=== PATIENT | female | born 1960 | race Caucasian/White ===

== ENCOUNTER 2019-06-26 16:13 | Outpatient (CLI) | payer OTHER, BC, SELFPAY ==
--- NOTE | ~2019-06-26 | XR_ITS ---
EXAMINATION: XR chest 2V DATE: 06/26/2019 16:49 INDICATION: Tobacco use TECHNIQUE: PA and lateral views of the chest are obtained. COMPARISON: None available FINDINGS: The lungs are free of acute opacities. There is no pleural effusion or pneumothorax. The ca rdiomediastinal silhouette is normal. There is mild thoracic spondylosis. A suture anchor is noted in the right humeral head. IMPRESSION: 1. No acute cardiopulmonary abnormality. Reviewed, dictated and finalized at location A.
== END 2019-06-26 16:14 | disposition home or self-care (01) ==
LOC: ANHIMG 16:28
PROVIDERS: PCP Family Medicine; Visit Provider Orthopaedic Surgery
DX: Z01.818 Encounter for other preprocedural examination (principal); Z87.891 Personal history of nicotine dependence
CPT/HCPCS: 71046

== ENCOUNTER 2019-06-27 17:16 | Outpatient (CLI) | payer OTHER, BC, SELFPAY | END 2019-06-27 17:17 | disposition home or self-care (01) | PROVIDERS: PCP Family Medicine; Visit Provider Orthopaedic Surgery | DX: M75.100 Unspecified rotator cuff tear or rupture of unspecified shoulder, not specified as traumatic (principal) | CPT/HCPCS: 87070 ==

== ENCOUNTER 2019-07-01 00:10 | Outpatient (CLI) | payer BC, SELFPAY ==
[2019-07-01 16:10] LABS: SARS-CoV-2 RNA PCR Negative
== END 2019-07-01 00:11 | disposition home or self-care (01) ==
LOC: ANHCOVIDDT 00:10
PROVIDERS: PCP Family Medicine; Visit Provider Orthopaedic Surgery
DX: Z01.818 Encounter for other preprocedural examination (principal); Z11.59 Encounter for screening for other viral diseases
CPT/HCPCS: 87635; C9803; U0003

== ENCOUNTER 2019-07-03 01:34 | Day surgery (SDC) | payer OTHER, BC, SELFPAY ==
[2019-06-25 15:28] VITALS: BMI 27.9
--- NOTE | 2019-06-28 11:27 | HP_ITS ---
DATE OF SERVICE: ADMIT DIAGNOSIS: Rotator cuff tear, left shoulder. HISTORY OF PRESENT ILLNESS: The patient is a 59-year-old female patient of Dr. Garcia, who presents today for arthroscopy of her left shoulder with rotator cuff repair. She has been having symptoms in her shoulder for over a year and a half now. She was initially evaluated in November 2018. At that time, she was evaluated for pain in the shoulder. 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 She has a history of rotator cuff tear in the right shoulder that was repaired. She was initially evaluated. After initial evaluation, the patient was sent for an MRI scan, which did show a full-thickness rotator cuff tear of the supraspinatus tendon about 12 mm in width. She has gone through some physical therapy, which only made her symptoms worse. She has been on anti-inflammatories without improvement of her symptoms. She has been trying to live with this as long as possible. Unfortunately, she continues to have significant symptoms, feels at this point she is ready to proceed with repair of the rotator cuff tendon. She has also been waiting on work comp to approve this as a work-related injury. PAST MEDICAL/SURGICAL HISTORY: She has had the shoulder surgery on the right in the past in 2013. CURRENT MEDICATIONS: Her only current medication is meloxicam 15 mg daily. ALLERGIES: SHE IS ALLERGIC TO CLINDAMYCIN, WHICH CAUSES STOMACH PAINS AND PENICILLIN, WHICH GIVES HER HIVES. FAMILY HISTORY: Noncontributory. SOCIAL HISTORY: She is a nonsmoker. PHYSICAL EXAMINATION: VITAL SIGNS: She is 5 feet 4 inches, 163 pounds. Other vital signs per nursing on the morning of surgery. HEENT: Grossly normal. LUNGS: Clear bilaterally. HEART: Regular rate and rhythm. MUSCULOSKELETAL: Left shoulder, she has active elevation to 140, passive to 160, both with severe pain. External rotation is to 80 with minimal pain. Internal rotation is to L1 with some mild pain. She has moderate weakness with thumbs down abduction testing. Moderate pain in this position as well. She has normal external rotation strength. Belly press is normal. She is barely able to do a subscap lift-off. Neck shows decreased range of motion and some mild pain in the right trapezius. Negative Spurling maneuver. She complains of no numbness or tingling in the left arm, has moderately severe tenderness over the long head of the biceps. Negative Speed maneuver. Significant pain with primary and secondary impingement testing. No AC joint tenderness. 2+ radial pulse. IMAGING DATA: MRI scan again shows full-thickness tear of the supraspinatus and partial thickness tearing of the infraspinatus. IMPRESSION: Patient has a full-thickness rotator cuff tear, left shoulder with continued symptoms. At this point, she would like to proceed with surgery. Surgical procedure as well as risks and complications were discussed. All questions were answered and we will proceed. She will avoid her Mobic and any other aspirin, ibuprofen products 1 week prior to surgery. She will see Dr. Garcia for pre-surgical clearance. D I MT: Miko
[2019-07-03] VITALS (9 sets, daily range): BP systolic 97–132; BP diastolic 64–76; PULSE 62–78; RESP 12–20; TEMP 36.1–36.4; O2SAT 93–100
--- NOTE | 2019-07-03 10:38 | WPDANESEPPF ---
Anes - Initial Pre Proc Eval Procedure: Operation Date: 07/03/19 12:00 Proposed Procedures p Left Shoulder Arthroscopy Acromialplasty Mini Open Rotator Cuff Repair, Proceed as Indicated - Ferny Dove MD Date/Time: 07/03/19 10:38 Surgeon: Ferny Dove MD Pre Op Diagnosis: Left Shoulder Rotator Cuff tear Patient Data Age: 59 Gender: F Height: 5 ft 4 in Weight: 73.94 kg Allergies Allergy/AdvReac Type Severity Reaction Status Date / Time Penicillins Allergy Unknown HIVES Verified 07/03/19 10:18 clindamycin AdvReac Nausea Verified 07/03/19 10:18 Honey Bee Allergy Unknown REDNESS, Uncoded 07/03/19 10:18 SEVERE SWELLING Home Medications Medication Instructions Recorded Confirmed Type Glucosamine Chondroitin 1 tbsp PO DAILY 06/25/19 07/03/19 History Patient hx anesthesia problems: post op nausea/vomiting Family hx anesthesia problems: none Anes - Eval Final PreProcedure Day of Procedure 07/03/19 10:38 Patient weight: overweight Heart: regular rate and rhythm Lungs: clear to auscultation Airway: Mallampati scale class II Neurological: alert and oriented Last oral intake: >/= 8 hours ASA classification: II Emergent: no Anesthetic plan: proceed Anesthesia type and monitoring: general LMA and standard monitoring Informed Consent: The patient's anesthetic plan and its attendant risks and benefits were discussed with the patient/family/POA. Questions were solicited and answers provided to the satisfaction of the patient/family/POA.
[2019-07-03] MEDS: LACTATED RINGERS 1,000 ML 30 ML IV CONT ×2 (10:45→15:17)
[2019-07-03] MEDS: SCOPOLAMINE 1.5 MG PATCH TRANSDERM (11:24)
--- NOTE | 2019-07-03 12:10 | WPDANESPNB ---
Anes - Peripheral Nerve Block Date/Time: 07/03/19 12:10 I have discussed with the patient/family/POA the placement of a peripheral nerve block for post-operative pain management, including associated risks, benefits, complications, and side effects. Alternative methods of post-operative analgesia were detailed. Questions were solicited and answers provided to the satisfaction of the patient/family/POA. Time-Out: A pre-procedural Time-Out was completed immediately before starting the procedure and confirmed: Patient Identification, Site, Procedure, Patient Position and the Availability of Requisite Equipment. Clinical Indications: Acute post-operative pain management requested by the operative surgeon. Nerve Block Insertion Note Anes-nerve block: interscalene left Patient position: other (sitting) Skin prep: chlorhexidine Needle: 22 gauge, stimulating, insulated echogenic needle. Needle length: 50 mm Technique: nerve stimulation lost at (mA) (0.3) and ultrasound Technique comment: mid 2mg fent 100mcg Injectate: bupivacaine 0.5% with epi 5 mcg/ml (30ml) and dexamethasone (mg) (4) Observations: tolerated well Complications: none Procedure start time:: 1158 Procedure end time:: 1203
--- NOTE | 2019-07-03 12:13 | WPDHPUPDATE1 ---
History and Physical Update Update Date/Time: 07/03/19 12:13 History and Physical has been reviewed, including an updated exam of the patient. There are NO changes in the patient's condition. Risks, benefits, and alternatives have been discussed and questions answered. Patient agrees to proceed with procedure.
[2019-07-03] MEDS: ceFAZolin 2 GM/D5W 50 ML 2 GM/50 ML BAG IVPB (12:30)
[2019-07-03] MEDS: ceFAZolin SODIUM 1 GM VIAL IRRIGATION (12:50)
--- NOTE | 2019-07-03 15:15 | PM.PROC ---
Procedure Note - Detailed Date of procedure: 07/03/19 Pre-op diagnosis: Left Shoulder Rotator Cuff tear Post-op diagnosis: other (Same, and severe fraying of long head of biceps tendon as it entered the bicipital groove. Left shoulder) Procedure performed: Left shoulder Arthroscopic debridement labrum and CA ligament, arthroscopic biceps tenotomy, mini open biceps tenodesis in the bicipital groove using keyhole technique, mini open rotator cuff repair medium size rotator cuff tear. Description of procedure: Patient brought to the operating room and general anesthesia was administered. She received 2 g of Ancef and 1 g of vancomycin IV preoperatively. She had no rash. She was placed in the beach chair position the head secured in neutral alignment in the left shoulder prepped draped usual fashion. Range of motion was good. Arthroscope was placed into the posterior glenohumeral joint. Articular surfaces looked normal. There was moderate fraying of the superior labrum and some maceration there. There was severe fraying of the long head of the biceps and narrowing of its caliber as it entered the bicipital groove where there was apparent incompetence of the medial myriam of the long of the biceps tendon sheath. Full-thickness rotator cuff tear identified involving supraspinatus tendon partial-thickness tearing involving the infraspinatus tendon. Arthroscope was placed in the subacromial space. There is fairly extensive fraying of the CA ligament we made another mid lateral portal and placed an anterior outflow portal and with ArthroCare and shaver alternating debrided the CA ligament insertion from anterior acromion to decompress the subacromial space. We did not perform a sub a formal subacromial acromioplasty as she did not have a significant buildup Sineff narrowing of the subacromial space from the anterior acromion. It was a gently curved type 2 on MRI scan. The U shaped tear mildly retracted was again noted. The shoulder was covered with Ioban outer gloves changed. A 2 in incision was made extending off the top of the anterior acromion anterolaterally and the tendinous raphe between anterior and middle heads of the deltoid was split longitudinally giving a 4 cm split. Self-retaining retractor was placed. This was a little tight and we released about 5 mm of anterior deltoid from the acromion to be repaired later. This gave us excellent exposure. The arm was placed on a Man stand and the bicipital groove brought under the incision and 1 could feel the subluxation of the upper portion of the long of the biceps. Biceps tendon sheath was incised and partial-thickness tearing Varinder to about the midportion of the bicipital groove the the tendon improved. The bicipital groove was somewhat stenotic I thought. The caliber of the long head of the biceps proximally was good. S we placed a 2. Ethibond suture in the tendon at the lower edge of the bicipital groove as a marking spigot and removed the retractor placed the arthroscope back in the posterior portal and using arthroscopic scissors we amputated the long of the biceps from the superior glenoid leaving a few mm. Intact the superior labrum was gently debrided with motorized shaver otherwise was competent and stable. With the arthroscope removed we returned to placed the self-retaining retractors and rolled the biceps proximal to the marking stitch into a tight ball was solidified with 2. FiberWire about 8 or 9 mm diameter and we made these circular hole in the top of the bicipital groove with a 5 mm bur of the same size the made a 2-1/2 mm slot which represented the with observe represented the thickness of the tendon and it is flatter dimension and this slot extended about 8 mm below the circular hole and we then pushed the ball the portion of long head into the hole and allowed to retract distally behind the slot the tendon slid in the slot nicely giving a very secure fixation. Bicipital groove aponeurosis was repaired
[2019-07-03 17:07] LABS: HIV 1/2 Ab P24 Ag Result Negative (Negative); Hepatitis B Surface Anti Res Negative; Hepatitis C Virus Antibody Negative (Negative)
== END 2019-07-03 17:15 | disposition home or self-care (01) ==
PROVIDERS: PCP Family Medicine; Visit Provider Orthopaedic Surgery
PROC: (CPT 29805; principal; 2019-07-03 12:00)
DX: M75.102 Unspecified rotator cuff tear or rupture of left shoulder, not specified as traumatic (principal); G89.18 Other acute postprocedural pain
CPT/HCPCS: 23412; 23430; 29822; 64415; 36415; 86703; 86706; 86803; A4565; A9270; G0432; J0690; J1100; J2250; J2405; J2704; J3010; J3370; J7120

== ENCOUNTER 2019-09-20 12:36 | Outpatient (CLI) | payer OTHER, BC, SELFPAY ==
--- NOTE | ~2019-09-20 | MR_ITS ---
EXAMINATION: MR brain/brain stem wo/w con DATE: 09/20/2019 13:59 INDICATION: Dizziness and giddiness. TECHNIQUE: Magnetic resonance imaging (MRI) of the brain and brainstem was performed without and with 14 mL MultiHance intravenous contrast. Sequences included sagittal and axial T1-weighted FSE, axial diffusion-weighted FS EPI, axial T2*-weighted GRE, axial T2-weighted FLAIR Propeller, and axial T2-we ighted Propeller. Postcontrast sequences included axial and coronal T1-weighted FSE. Apparent diffusi on coefficient (ADC) maps were created. COMPARISON: None. FINDINGS: There is no intracranial hemorrhage, acute infarction, or abnormal intracranial mass lesion . The ventricles are normal in size. There is mild mucosal thickening in the paranasal sinuses. The o rbits are normal. There is a trace left mastoid effusion. IMPRESSION: 1. Normal brain. Reviewed, dictated and finalized at location B. IMPRESSION: 1. Normal brain.
[2019-09-20 13:23] LABS: Estimated Glomerular Filt Rate > 60
== END 2019-09-20 12:37 | disposition home or self-care (01) ==
LOC: ANHIMG 12:47
PROVIDERS: PCP Family Medicine
DX: R42 Dizziness and giddiness (principal)
CPT/HCPCS: 36415; 70553; A9577

== ENCOUNTER → 2019-09-25 10:37 | Outpatient (CLI) | payer BC, SELFPAY ==
--- NOTE | ~2019-09-25 | US_ITS ---
EXAMINATION: US carotid duplex BI DATE: 09/25/2019 11:27 INDICATION: Vertigo. TECHNIQUE: Grayscale, color Doppler, and pulsed Doppler images of the cervical carotid arteries were obtained. The degree of vessel stenosis is placed in one of the following categories: normal, <50%, 5 0-69%, >=70% but less than near-occlusion, near-occlusion, or total occlusion. Note that percent sten osis relative to normal distal artery lumen diameter is indirectly measured from velocity measurement s as described by Efraín, et al. Radiology 2003; 229:340-346. COMPARISON: None. FINDINGS: RIGHT: The right common carotid artery (CCA) peak systolic velocity (PSV) is 107 cm/s. The right internal ca rotid artery (ICA) PSV is 88 cm/s. The right ICA end-diastolic velocity (EDV) is 18 cm/s. The right I CA/CCA PSV ratio is 0.8. Grayscale and color Doppler images yield an estimate of <50% diameter reduct ion from plaque in the ICA. There is antegrade flow in the right vertebral artery. LEFT: The left CCA PSV is 91 cm/s. The left ICA PSV is 95 cm/s. The left ICA EDV is 33 cm/s. The left ICA/C CA PSV ratio is 1.0. Grayscale and color Doppler images yield an estimate of <50% diameter reduction from plaque in the ICA. There is antegrade flow in the left vertebral artery. IMPRESSION: 1. <50% stenosis in the right internal carotid artery. 2. <50% stenosis in the left internal carotid artery. Reviewed, dictated and finalized at location A.
== END ==
PROVIDERS: PCP Family Medicine; Visit Provider Family Medicine
DX: R42 Dizziness and giddiness (principal); I65.23 Occlusion and stenosis of bilateral carotid arteries
CPT/HCPCS: 93880

== ENCOUNTER → 2020-07-24 13:16 | Outpatient (CLI) | payer BC, SELFPAY ==
--- NOTE | ~2020-07-24 | MM_ITS ---
EXAMINATION: MM screening [facility] BI w [facility] HISTORY: Screening mammogram TECHNIQUE: Craniocaudal and mediolateral oblique 3-D tomosynthesis images were obtained and synthetic 2-D images were generated. CAD analysis was submitted and interpreted. COMPARISON: 09/27/2018, 08/07/2017, 06/23/2016 BREAST PARENCHYMAL COMPOSITION: There are scattered areas of fibroglandular density. FINDINGS: There is no evidence of suspicious mass, calcification, or architectural distortion to sugg est malignancy in either breast. There has been no suspicious interval change. IMPRESSION: 1. No mammographic evidence of malignancy. 2. Recommend routine screening mammography in one year. BI-RADS Category 1: Negative Reviewed, dictated and finalized at location A.
== END ==
PROVIDERS: PCP Family Medicine; Visit Provider Family Medicine
DX: Z12.31 Encounter for screening mammogram for malignant neoplasm of breast (principal)
CPT/HCPCS: 77063; 77067

== ENCOUNTER 2021-08-07 17:56 | Emergency (ER) | payer BC, SELFPAY ==
--- NOTE | ~2021-08-07 | XR_ITS ---
EXAM: XR knee RT min 4V DATE: 08/07/2021 18:18 HISTORY: right knee pain . COMPARISON: None available. FINDINGS: Normal mineralization. No fracture or dislocation. No lytic or blastic lesion. Right knee osteoarthritic change, moderate in the medial compartment. No erosion or periosteal change. Soft tiss ues within normal limits. IMPRESSION: No acute osseous finding in the right knee. Reviewed, dictated and finalized at location K.
[2021-08-07 17:58] VITALS: BP 127/66; PULSE 67; RESP 18; TEMP 36.6; O2SAT 99
--- NOTE | 2021-08-07 18:21 | ED.LOWEXIN ---
HPI - Extremity Injury (Lower) General Chief Complaint: Extremity Injury, Lower <Serina Verma PA-C - Last Filed: 08/07/21 19:03> Stated Complaint: R. knee pain <LIBIA Stuart Last Filed: 08/07/21 19:03> Time Seen by Provider: 08/07/21 18:07 <Serina Verma PA-C - Last Filed: 08/07/21 19:03> Source: patient <LIBIA Stuart Last Filed: 08/07/21 19:03> Mode of arrival: ambulatory <LIBIA Stuart Last Filed: 08/07/21 19:03> Limitations: no limitations <LIBIA Stuart Last Filed: 08/07/21 19:03> History of Present Illness HPI Narrative: This is a 61-year-old female that presents to the emergency department for right knee pain worsening over the last month. No recent injury or trauma. Reports progressive pain with weightbearing and movement. She has been taking anti-inflammatories for pain. Denies fever, erythema, edema, or numbness. <Serina Verma PA-C - Last Filed: 08/07/21 19:03> Related Data Home Medications: Home Medications Medication Instructions Recorded Confirmed No Home Medications 08/07/21 08/07/21 <Serina Verma PA-C - Last Filed: 08/07/21 19:03> Allergies/Adverse Reactions: Allergies Allergy/AdvReac Type Severity Reaction Status Date / Time Penicillins Allergy Unknown HIVES Verified 08/07/21 18:08 clindamycin AdvReac Nausea Verified 08/07/21 18:08 Honey Bee Allergy Unknown REDNESS, Uncoded 07/03/19 10:18 SEVERE SWELLING <LIBIA Stuart Last Filed: 08/07/21 19:03> Review of Systems Review of Systems: CONSTITUTIONAL: Denies fever SKIN: Denies rash MUSCULOSKELETAL: Reports joint pain, and myalgia. NEUROLOGIC: Denies numbness <LIBIA Stuart Last Filed: 08/07/21 19:03> All systems reviewed & are unremarkable except as noted in HPI and below <Serina Verma PA-C - Last Filed: 08/07/21 19:03> PMFSH Past Medical History Medical History: Medical History (Updated 08/07/21 @ 19:03 by Serina Verma PA-C) History of hypothyroidism <Serina Verma PA-C - Last Filed: 08/07/21 19:03> Social History Social History: Social History (Updated 08/07/21 @ 18:23 by Serina Verma PA-C) Substance use: never <Serina Verma PA-C - Last Filed: 08/07/21 19:03> Exam Narrative: GENERAL: Well-appearing, well-nourished, and in no acute distress. HEAD: Normocephalic, atraumatic. EYES: EOMI. EXTREMITIES: Normal range of motion. No edema, erythema or warmth. Normal DP pulse. Normal sensation SKIN: Warm, dry, no rash. NEURO: No focal deficits. Alert and oriented x3. PSYCH: Normal mood and affect <Serina Verma PA-C - Last Filed: 08/07/21 19:03> Course GLASS EDGER/PA Physician Supervision I did not see this patient nor was the care plan discussed with me, imaging reviewed I was available for evaluation and consultation, I agree with the documentation <Benedict Mathis MD - Last Filed: 08/07/21 21:32> Vital Signs Vital signs: Vital Signs Temperature 36.6 C 08/07/21 17:58 Pulse Rate 67 08/07/21 17:58 Respiratory Rate 18 08/07/21 17:58 Blood Pressure 127/66 08/07/21 17:58 Pulse Oximetry 99 08/07/21 17:58 Oxygen Delivery Room Air 08/07/21 17:58 Temperature 36.6 C 08/07/21 17:58 Pulse Rate 67 08/07/21 17:58 Respiratory Rate 18 08/07/21 17:58 Blood Pressure 127/66 08/07/21 17:58 Pulse Oximetry 99 08/07/21 17:58 Oxygen Delivery Room Air 08/07/21 17:58 <Serina Verma PA-C - Last Filed: 08/07/21 19:03> Vital Signs Temperature 36.6 C 08/07/21 17:58 Pulse Rate 67 08/07/21 17:58 Respiratory Rate 18 08/07/21 17:58 Blood Pressure 127/66 08/07/21 17:58 Pulse Oximetry 99 08/07/21 17:58 Oxygen Delivery Room Air 08/07/21 17:58 Temperature 36.6 C 08/07/21 17:58 Pulse Rate 67 08/07/21 17:58 Respiratory Rate 18 08/07/21 17:58 Blood Pressure 127/66 08/07/21 17:58 Pulse
== END 2021-08-07 19:10 | disposition home or self-care (01) ==
PROVIDERS: Emergency Provider Emergency Medicine; PCP Family Medicine
DX: M17.11 Unilateral primary osteoarthritis, right knee (principal); E03.9 Hypothyroidism, unspecified
CPT/HCPCS: 73564; 99283

== ENCOUNTER 2021-08-20 12:39 | Emergency (ER) | payer BC, SELFPAY ==
[2021-08-20 12:48] VITALS: BP 141/64; PULSE 82; RESP 16; TEMP 37.5; O2SAT 98
--- NOTE | 2021-08-20 13:47 | ED.EAR ---
HPI - Ear Problem General Chief complaint: Ear Stated complaint: Ear Pain,Cough Time Seen by Provider: 08/20/21 13:47 Source: patient Mode of arrival: ambulatory Limitations: no limitations History of Present Illness HPI Narrative: 61-year-old female presents with complaint of sore throat, cough, hoarse voice for 2 to 3 days. No body aches, fatigue fever or chills. No nausea vomiting diarrhea. No shortness of breath. States that today she woke up with right ear pain. Has not taken any medication to treat her pain. Is taking [id number]-neepyhu DayQuil NyQuil to treat cough. Called her primary care physician today but could not get appointment. Patient's primary care doctor called her back while she was at urgent care and prescribed a Z-Brian. All systems reviewed and negative except as noted above. Related Data Home Medications Medication Instructions Recorded Confirmed levothyroxine 50 mcg tablet 1 tablet PO DAILY 08/20/21 08/20/21 Allergies Allergy/AdvReac Type Severity Reaction Status Date / Time Penicillins Allergy Unknown HIVES Verified 08/20/21 13:13 clindamycin AdvReac Nausea Verified 08/20/21 13:13 Honey Bee Allergy Unknown REDNESS, Uncoded 08/20/21 13:13 SEVERE SWELLING Review of Systems Review of Systems: CONSTITUTIONAL: Denies fever, chills, or sweats. EYES: Denies visual changes, redness, or discharge. ENT: Denies rhinorrhea, congestion. Reports sore throat and right ear pain. CARDIOVASCULAR: Denies chest pain, palpitations, or edema. RESPIRATORY: Reports cough. Denies dyspnea. GASTROINTESTINAL: Denies abdominal pain, nausea, vomiting, or diarrhea. GENITOURINARY: Denies dysuria or hematuria. SKIN: Denies rash or itching. MUSCULOSKELETAL: Denies back pain, joint pain, or myalgia. NEUROLOGIC: Denies headache, numbness, or weakness. PSYCHIATRIC: Denies anxiety or depression. All other systems reviewed are negative, except as documented in HPI. [facility] Past Medical History Medical History (Updated 08/20/21 @ 14:22 by Janis Herman NP) History of hypothyroidism Social History Social History (Updated 08/07/21 @ 18:23 by Serina Verma PA-C) Substance use: never Comments At time of signature, agree with nursing past medical, surgical, social and family history. There is no relevant family history pertinent to the presenting complaint. Exam Narrative: GENERAL: This is a well-nourished, well-developed patient, in no apparent distress. HEAD: normocephalic, atraumatic. EYES: PERRL. Sclera clear/white. Vision is grossly intact. EARS: External ears normal, auditory canals clear and without drainage, fluid to bilateral TMs with dull light reflex. No erythema or bulging. No perforation. NOSE: External nose normal with no obvious nasal discharge, nares without redness, no rhinorrhea. THROAT: Mucous membranes moist, erythema to posterior pharynx. No swelling or exudates. NECK: Neck supple, non-tender without lymphadenopathy, masses or thyromegaly. CARDIOVASCULAR: Regular rate and rhythm without murmurs, gallops, or rubs. RESPIRATORY: Clear to auscultation. Breath sounds equal bilaterally. No wheezes, rales, or rhonchi. SKIN: warm, Dry, intact with no suspicious lesions or rash, good texture and turgor. NEURO: awake, alert, and oriented to person, place and time. There were no obvious focal neurologic abnormalities. EXTREMITIES: No joint tenderness, effusion, or edema noted. Course Course Level of Care: Express Care Visit Vital Signs Vital signs: Vital Signs Temperature 37.5 C 08/20/21 12:48 Pulse Rate 82 08/20/21 12:48 Respiratory Rate 16 08/20/21 12:48 Blood Pressure 141/64 H 08/20/21 12:48 Pulse Oximetry 98 08/20/21 12:48 Oxygen Delivery Room Air 08/20/21 12:48 Temperature 37.5 C 08/20/21 12:48 Pulse Rate 82 08/20/21 12:48 Respiratory Rate 16 08/20/21 12:48 Blood Pressure 141/64 H 08/20/21 12:48 Pulse Oximetry 98 08/20/21 12:48 Oxygen
== END 2021-08-20 14:38 | disposition home or self-care (01) ==
PROVIDERS: Emergency Provider Nurse Practitioner Family; PCP Family Medicine
DX: J06.9 Acute upper respiratory infection, unspecified (principal); H65.01 Acute serous otitis media, right ear; Z20.822 Contact with and (suspected) exposure to COVID-19; E03.9 Hypothyroidism, unspecified
CPT/HCPCS: 87081; 87426; 87880; 99213; C9803; G0463

== ENCOUNTER → 2021-11-01 10:00 | Outpatient (CLI) | payer BC, SELFPAY ==
--- NOTE | ~2021-11-01 | MM_ITS ---
EXAMINATION: MM screening [facility] BI w [facility] HISTORY: Screening mammogram TECHNIQUE: Craniocaudal and mediolateral oblique 3-D tomosynthesis images were obtained and synthetic 2-D images were generated. CAD analysis was submitted and interpreted. COMPARISON: 07/24/2020, 09/27/2018, 08/07/2017 bilateral screening mammogram examinations BREAST PARENCHYMAL COMPOSITION: The breasts are almost entirely fatty. FINDINGS: There is no evidence of suspicious mass, calcification, or architectural distortion to sugg est malignancy in either breast. There has been no suspicious interval change. IMPRESSION: 1. No mammographic evidence of malignancy. 2. Recommend routine screening mammography in one year. BI-RADS Category 1: Negative Reviewed, dictated and finalized at location A.
== END ==
PROVIDERS: PCP Family Medicine; Visit Provider Family Medicine
DX: Z12.31 Encounter for screening mammogram for malignant neoplasm of breast (principal)
CPT/HCPCS: 77063; 77067

== ENCOUNTER → 2023-03-07 10:57 | Outpatient (CLI) | payer BC, SELFPAY ==
--- NOTE | ~2023-03-07 | MM_ITS ---
EXAMINATION: MM screening [facility] w [facility] HISTORY: Screening TECHNIQUE: Craniocaudal and mediolateral oblique 3-D tomosynthesis images were obtained and synthetic 2-D images were generated. CAD analysis was submitted and interpreted. COMPARISON: No prior mammogram is available for comparison at this institution. BREAST PARENCHYMAL COMPOSITION: There are scattered areas of fibroglandular density. FINDINGS: There is no evidence of suspicious mass, calcification, or architectural distortion to sugg est malignancy in either breast. There has been no suspicious interval change. IMPRESSION: 1. No mammographic evidence of malignancy. 2. Recommend routine screening mammography in one year. BI-RADS Category 1: Negative Reviewed, dictated and finalized at location A. 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
== END ==
PROVIDERS: PCP Family Medicine; Visit Provider Family Medicine
DX: Z12.31 Encounter for screening mammogram for malignant neoplasm of breast (principal)
CPT/HCPCS: 77063; 77067

== ENCOUNTER 2024-02-06 10:24 | Emergency (ER) | payer BC, SELFPAY ==
--- NOTE | 2024-02-06 10:28 | ED_ITS ---
HPI - URI/Sore Throat General Chief Complaint: Upper Respiratory Infection Stated Complaint: Sinus symptoms Time Seen by Provider: 02/06/24 10:28 Source: patient Mode of arrival: ambulatory Limitations: no limitations History of Present Illness HPI Narrative: Gi is a 64-year-old female patient presenting to the clinic today with complaints of possible sinus infection. She reports symptoms have been going on for approximately 2 weeks. Is blowing out green nasal drainage. Has a lot of sinus pressure and congestion. Has felt feverish with fatigue. MD elicited complaint: sore throat and nasal congestion Related Data Allergies Allergy/AdvReac Type Severity Reaction Status Date / Time Penicillins Allergy Unknown HIVES Verified 02/06/24 10:28 clindamycin AdvReac Nausea Verified 02/06/24 10:28 Honey Bee Allergy Unknown REDNESS, Uncoded 10/31/23 10:50 SEVERE SWELLING Review of Systems Review of Systems: Pertinent positives per HPI. Patient denies any fever, chills, rash, visual changes, dizziness, shortness of breath, chest pain, palpitations, nausea, vomiting, diarrhea, constipation, abdominal pain, or any urinary issues. FOR[facility]LY [facility] Past Medical History Medical History Anxiety History of hypothyroidism Surgical History Surgical History H/O rotator cuff surgery Family History Family History Father Diabetes mellitus Cancer Sibling Diabetes mellitus Thyroid disorder Social History Social History Smoking status: Former smoker (smoked less than 1 ppd for under ten years, 30 years ago) Second hand tobacco smoke exposure: No Alcohol intake: never Substance use: never Substance use type: does not use Do You Feel Safe in your Home?: Yes Lack of Transportation: No Lack of Food: Never True Current Housing: I Have Housing Concerned About Future Housing: No Difficulty Paying Gas/Electric Bills: No Difficulty Paying for Meds: No Currently Unemployed: No Living arrangements: with family Occupation/Education: occupation Gender identity (if verbalized by the patient): Female Sexual Orientation (if Verbalized by the Patient): Straight or Heterosexual Spiritual care concerns: No Comments At the time of my signature, I reviewed and agree with the nursing past medical, surgical, social, and family history. There is no relevant family history pertinent to the patient complaint. Exam Narrative: General: Well-developed, well nourished, in no apparent distress Head: Normocephalic, atraumatic Eyes: Pupils equally round and reactive to light bilaterally, EOM intact, sclera and conjunctive clear, no discharge, lids normal Ears: TMs intact and clear, ear canals ceruminous, no drainage, grossly hearing normal. Nose: Nares patent, green nasal discharge, moderate inflammation, maxillary and frontal sinus tenderness. Mouth: Oral pharynx without lesions or masses, good dentition, MMM. Postnasal drip Neck: Supple, trachea midline, no enlargement of anterior or posterior cervical nodes, no thyroid masses or goiter palpable. Cardio: Regular rate and rhythm, s1 and s2 normal, no murmur appreciated. Resp: Clear to auscultation bilaterally, no rhonchi, rales, wheezing or rubs Course Course Emergency Course: Portions of this record may have been created with voice recognition software. Level of Care: Express Care Visit Vital Signs Vital signs: Vital Signs Temperature 36.4 C L 02/06/24 10:33 Pulse Rate 86 02/06/24 10:33 Respiratory Rate 18 02/06/24 10:33 Blood Pressure 127/72 02/06/24 10:33 Pulse Oximetry 97 02/06/24 10:33 Oxygen Delivery Room Air 02/06/24 10:33 Temperature 36.4 C L 02/06/24 10:33 Pulse Rate 86 02/06/24 10:33 Respiratory Rate 18 02/06/24 10:33 Blood Pressure 127/72 02/06/24 10:33 Pulse Oximetry 97 02/06/24 10:33 Oxygen Delivery Room Air 02/06/24 10:33 Vital signs reviewed MDM - URI/Sore Throat MDM Narrative Medical decision making narrative: At the time of visit patient is resting comfortably on the exam table. Patient appears to be nontoxic. Plan: I suspect patient has acute bacterial rhinosinusitis. Prescription for doxycycline and prednisone was sent to the pharmacy. Supportive measures were discussed with the patient and they voiced understanding discharge instructions and agrees to treatment plan. Return precautions reviewed Differential Diagnosis Differential diagnosis: Likely upper respiratory infection, otitis media, sinusitis, viral infection, bronchitis, influenza, pharyngitis and other Discharge Plan Discharge Clinical Impression: Acute bacterial rhinosinusitis Patient Disposition: Home, Self-Care Condition: Stable Instructions: Antibiotic Form, Rhinosinusitis (ED) Additional Instructions: Take prescription medications only as prescribed-doxycycline and prednisone Increase fluids and stay well hydrated Tylenol/motrin for pain/fever Flonase and OTC antihistamines as directed Vicks vapor rub to open sinuses Sinus rinses for congestion Cepacol spray, cough drops, throat lozenges, warm tea with honey/lemon, gargle salt water to soothe throat BRAT diet for diarrhea Clear liquids x 24 hours then advance as tolerated for nausea/vomiting Go to the ED if you develop a worsening in your condition- high fever not controlled by Tylenol or Motrin, dehydration, weakness, lethargy, shortness of breath, or chest pain. Follow up with your PCP in 3-5 days if symptoms persist. Patient Language: Nepali Prescriptions: New doxycycline monohydrate 100 mg capsule 100 mg PO BID 10 Days Qty: 20 0RF prednisone 20 mg tablet 40 mg PO DAILY 5 Days Qty: 10 0RF No Action loratadine [Claritin] 10 mg tablet 10 mg PO DAILY Qty: 30 0RF glucosamine sulfate [Cidatrine (glucosamine)] 500 mg tablet 500 mg PO DAILY Qty: 1 0RF Rx Instructions: administer with a meal cholecalciferol (vitamin D3) 25 mcg (1,000 unit) capsule 25 mcg PO DAILY Qty: 1 0RF levothyroxine 50 mcg tablet 50 mcg PO DAILY Qty: 90 1RF Follow-up/Referrals: Chio Chandler MD [Primary Care Provider] - Time of Disposition: 10:36 Quality NIHSS Nursing Documentation ED NIHSS nursing documentation: reviewed/agree
[2024-02-06 10:33] VITALS: BP 127/72; PULSE 86; RESP 18; TEMP 36.4; O2SAT 97
== END 2024-02-06 10:41 | disposition home or self-care (01) ==
PROVIDERS: Emergency Provider Nurse Practitioner Family; PCP Family Medicine
DX: J01.90 Acute sinusitis, unspecified (principal); Z87.891 Personal history of nicotine dependence; E03.9 Hypothyroidism, unspecified
CPT/HCPCS: 99213; G0463

== ENCOUNTER 2024-03-13 10:50 | Outpatient (CLI) | payer BC, SELFPAY ==
--- NOTE | 2024-03-13 11:14 | ECG_ITS ---
Test Date: 2024-03-13 11:26:03 Measurements Intervals Eckley Rate: 57 P: 57 FL: 198 QRS: 48 QRSD: 96 T: 29 QT: 405 QTc: 396 Interpretive Statements SINUS BRADYCARDIA POSSIBLE LEFT ATRIAL ENLARGEMENT LOW QRS VOLTAGE IN PRECORDIAL LEADS INCOMPLETE RIGHT BUNDLE BRANCH BLOCK BORDERLINE ST-T WAVE ABNORMALITY- INFERIOR LEADS BORDERLINE ECG No previous ECG available for comparison Electronically Signed On 03-13-2024 13:37:16 TERMINAL BLOCK ASSEMBLER by Montrell Kaminski D.O.
--- OUTSIDE RECORDS SUMMARY | 2024-03-13 12:29 | XMS_ITS | Patient Health Summary ---
Author Organization [facility] Address [address] [place] [address] Care Team Providers Care Supervisory Training Specialist Name Role Phone Jeovanny Garcia MD Primary Care Provider Note from [facility],non-owned Affiliates and Associated Physician Practices is amultiple site organization consisting of ambulatory clinics and hospital sitesin [place], [place], [place] and [place]. This disclosure is being madepursuant to the Care Everywhere program and may not contain all information available regarding this patient. Last updated 17.[facility] Social History Tobacco Use Types Packs/Day Years Used Date Smoking Tobacco: Never Assessed Sex and Gender Information Value Date Recorded Sex Assigned at Not on file Gender Identity Not on file Sexual Orientation Not on file Procedures * DERMATOPATHOLOGY(Performed 06/17/2021) * DERMATOPATHOLOGY(Performed 03/17/2021) * DERMATOPATH TECHNICAL REPORT(Performed 10/18/2017) Results * DERMATOPATHOLOGY (06/17/2021 3:33 AM CDT) Only the most recent of2 resultswithin the time period is included. Case Report Dermatopathology Report ? Case: [id number] ? Authorizing Provider: ??Charla Yu, ? Collected: ? 06/17/2021 03:33 AM ? GATE MANAGER-NEIGHBORHOOD AIDE ? Ordering Location: ? [facility] ?Received: ?06/18/2021 07:37 AM ? Pathologist: ? Yamini Mcconnell MD ? Specimen: ?Skin, right top shoulder ? 2 1:11 PM [facility] Final Diagnosis Specimen A. 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 The specimen consists of a shave biopsy measuring 6x5x1 mm. Jar 0. 2 1:11 PM [facility] Microscopic Description Specimen A. SKIN, right top shoulder: There is reticulated hyperplasia of the epidermis with overlying delicate hyperorthokeratosis . Hyperpigmentation is present in the basaloid cells. 2 1:11 PM [facility] Disclaimer An external and internal positive and negative controls are appropriate for the histochemical, immunohistochemical and immunofluorescence stain(s) in this case (if any), except where stated explicitly. The performance characteristics of the stain(s) cited in this report were developed and its performance characteristic determined by the Dermatopathology Laboratory at [facility], directed by Dr. Meagan Mccormick. These tests need not be, and therefore are not, approved by the [place] Food and Drug Administration. The tests are used for clinical purposes. Billing Codes Specimen Charges Stain Charges 96477 1 2 1:11 PM CDT DERMATOPATHOLOGY LABORATORY Embedded Images 2 1:11 PM CDT DERMATOPATHOLOGY LABORATORY Pathology/Cytolo gy TISSUE SPECIMEN FROM SKIN / Unknown 06/17/2021 3:33 AM CDT 06/18/2021 7:37 AM CDT Charla Yu GATE MANAGER-[facility] LAB - PATH OLOGY/CYTOLOGY ORDERABLES Performing Organization Address City/State/[facility] Co de Phone Number DERMATOPATHOLOGY LABORATORY [facility] Department of Dermatology [facility] Medicine [address] [place] [address] [phone] * DERMATOPATH TECHNICAL REPORT (10/18/2017 12:00 AM CDT) Case Report Dermatopathology Report ? Case: [id number] ? Authorizing Provider: ??Keena Burrows MD ? Collected: ? 10/18/2017 12:00 AM ? Pathologist: ? Yamini Mcconnell MD ?Received: ?10/20/2017 06:26 AM ? Specimen: ?Skin, right abd ? 1:05 PM CDT DERMATOPATHOLOGY LABORATORY Addendum 2 At the request of the diagnosing physician, the technical component for HMB-45 was performed by [facility] Dermatopathology Laboratory. 1:05 PM CDT DERMATOPATHOLOGY LABORATORY Addendum electronically signed by Yamini Mcconnell MD on 10/26/2017 at 1:05 PM Addendum 1 At the request of the diagnosing physician, the technical component for MART-1/Melan A was performed by [facility] Dermatopathology Laboratory. 1:05 PM CDT DERMATOPATHOLOGY LABORATORY Addendum electronically signed by Kathleen Mccormick MD on 10/25/2017 at 12:33 PM Clinical History R/O nevus, irregular border, irregular color. 1:05 PM T DERMATOPATHOLOGY LABORATORY Gross Description Specimen A: Received is one formalin filled container labeled with the patient's name and designated right abd. The specimen consists of a shave measuring [id number]. Jar 0. [facility] Dermatopathology Laboratory performed the technical component only. 1:05 PM CDT DERMATOPATHOLOGY LABORATORY Embedded Images 1:05 PM CDT DERMATOPATHOLOGY LABORATORY DISCLAIMER An external and internal positive and negative controls are appropriate for the histochemical, immunohistochemical and immunofluorescence stain(s) in this case (if any), except where stated explicitly. The performance characteristics of the stain(s) cited in this report were developed and its performance characteristic determined by the Dermatopathology Laboratory at [facility]. These tests need not be, and therefore are not, approved by the [place] Food and Drug Administration. The tests are used for clinical purposes. 1:05 PM T DERMATOPATHOLOGY LABORATORY Pathology/Cytolog y TISSUE SPECIMEN FROM SKIN / Unknown 10/18/2017 10/20/2017 6:26 AM CDT Keena Burrows MD LAB - PATHOLOGY/CYT OLOGY ORDERABLES DERMATOPATHOLOGY LABORATORY [facility] - Department of Dermatology [facility], 5th Floor Lab B [address] [phone] Care Teams Supervisory Training Specialist Relationship Specialty Start Date End Date Jeovanny Garcia MD [address] [place] [address] PCP - General 10/18/17
--- OUTSIDE RECORDS SUMMARY | 2024-03-13 12:29 | XMS_ITS | Encounter Summary ---
Author Organization [facility] Address [address] [place] [address] Care Team Providers Care Wad Impregnator Name Role Phone Jeovanny Garcia MD Primary Care Provider [phone] Encounter Details Date Type Department Care Team (Late st Contact Info) Description 10/20/2017 Lab Requisition [facility] D[facility] Lab [address] [place] [address] Keena Burrows MD [address] [facility] [address] [place] [address] Social History Tobacco Use Types Packs/Day Years Used Date Smoking Tobacco: Never Assessed Sex and Gender Information Value Date Recorded Sex Assigned at Not on file Gender Identity Not on file Sexual Orientation Not on file documented as of this encounter Plan of Treatment Not on file documented as of this encounter Procedures Procedure Name Priority Date/Time Associated Diagnosis Comments DERMATOPATH TECHNICAL REPORT Routine 10/18/2017 12:00 AM CDT documented in this encounter Results * DERMATOPATH TECHNICAL REPORT (10/18/2017 12:00 AM CDT) Case Report Dermatopathology Report ? Case: [id number] ? Authorizing Provider: ??Keena Burrows MD ? Collected: ? 10/18/2017 12:00 AM ? Pathologist: ? Yamini Mcconnell MD ?Received: ?10/20/2017 06:26 AM ? Specimen: ?Skin, right abd ? 1:05 PM CDT DERMATOPATHOLOGY LABORATORY Addendum 2 At the request of the diagnosing physician, the technical component for HMB-45 was performed by [facility] Dermatopathology Laboratory. 1:[address] [facility] DERMATOPATHOLOGY LABORATORY Addendum electronically signed by Yamini Mcconnell MD on 10/26/2017 at 1:05 PM Addendum 1 At the request of the diagnosing physician, the technical component for MART-1/Melan A was performed by [facility] Dermatopathology Laboratory. 1:[address] [facility] DERMATOPATHOLOGY LABORATORY Addendum electronically signed by Kathleen Mccormick MD on 10/25/2017 at 12:33 PM Clinical History R/O nevus, irregular border, irregular color. 1:[address] [facility] DERMATOPATHOLOGY LABORATORY Gross Description Specimen A: Received is one formalin filled container labeled with the patient's name and designated right abd. The specimen consists of a shave measuring [id number]. Jar 0. [facility] Dermatopathology Laboratory performed the technical component only. 1:05 PM T DERMATOPATHOLOGY LABORATORY Embedded Images 1:[address] [facility] DERMATOPATHOLOGY LABORATORY DISCLAIMER An external and internal positive and negative controls are appropriate for the histochemical, immunohistochemical and immunofluorescence stain(s) in this case (if any), except where stated explicitly. The performance characteristics of the stain(s) cited in this report were developed and its performance characteristic determined by the Dermatopathology Laboratory at [facility]. These tests need not be, and therefore are not, approved by the [place] Food and Drug Administration. The tests are used for clinical purposes. 1:[address] [facility] DERMATOPATHOLOGY LABORATORY Pathology/Cytolog y TISSUE SPECIMEN FROM SKIN / Unknown 10/18/2017 10/20/2017 6:26 AM CDT Keena Burrows MD LAB - PATHOLOGY/CYT OLOGY ORDERABLES DERMATOPATHOLOGY LABORATORY [facility] - Department of Dermatology [address] [place] [address] 5th Floor Lab [address] [phone] documented in this encounter Visit Diagnoses Not on filedocumented in this encounter Care Teams Wad Impregnator Relationship Specialty Start Date End Date Jeovanny Garcia MD [address] [place] [id number] PCP - General 10/18/17 documented as of this encounter
--- OUTSIDE RECORDS SUMMARY | 2024-03-13 12:29 | XMS_ITS | Clinical Summary ---
Author Organization [facility] Address [address] [place] [phone] Care Team Providers Care Book Trimmer Name Role Phone Lennie Pike MD Primary Care Provider + Social History Tobacco Use Types Packs/Day Years Used Date Smoking Tobacco: Never Assessed Comments Unknown Sex and Gender Information Value Date Recorded Sex Assigned at Not on file Legal Sex Female 10:01 AM CDT Gender Identity Not on file Sexual Orientation Not on file Plan of Treatment Health Maintenance Due Date Last Done Comments DTAP/TDAP/TD VACCINES (1 - Tdap) 01/02/1980 CERVICAL CANCER SCREENING 1991 BREAST CANCER SCREENING 2001 COLORECTAL SCREENING 2006 Colorectal Cancer Screening 2006 FIT-DNA Q 3 years 2006 FIT/FOBT Q 1 year 2006 Flex Sig/CT Colonography Q 5 years 2006 ZOSTER VACCINE (1 of 2) 2011 INFLUENZA VACCINE (#1) 2023 12/07/2020 Preventative Visit- Commercial 02/07/2024 RSV VACCINE (60+ or ) (1 - 1-dose 75+ series) 01/02/2036 Insurance [facility] [employer] Care Teams Book Trimmer Relationship Specialty Start Date End Date Lennie Pike MD [address] [place] [address] [place] [address] PCP - General Family Practice 10/01/21
--- OUTSIDE RECORDS SUMMARY | 2024-03-13 12:30 | XMS_ITS | Referral Summary ---
Author Organization [facility] Address [address] [place] [address] Care Team Providers Care Prepress Manager Name Role Phone Chio Chandler MD Primary Care Provider [phone] Encounters Date Type Department Care Team Description 12/22/2023 Orders Only [facility] Medical [facility] Orthopedics and Sports Medicine [address] [place] [address] [address] [place] [phone] Juan Gaytan MD Primary osteoarthritis of right knee (Primary Dx) 12/20/2023 3:00 PM REACH LIFT TRUCK DRIVER Office Visit [facility] [address] [place] [address] [address] [place] [phone] Juan Gaytan MD Pain in both knees, unspecified chronicity (Primary Dx); Primary osteoarthritis of right knee from Last 3 Months Allergies Active Allergy Reactions Criticality Noted Date Comments Clindamycin Stomach upset Low 12/08/2023 Ibuprofen Stomach upset Low Penicillin Hives Medium 12/08/2023 Medications levothyroxine (SYNTHROID) 50 mcg tablet Take 1 tablet (50 mcg total) by mouth 11/27/2023 Active acetaminophen-co deine (TYLENOL with CODEINE #3) 300-30 mg per tablet Take 1 tablet by mouth every 6 (six) hours as needed Active Active Problems Problem Noted Date Diagnosed Date Primary osteoarthritis of right knee 12/22/2023 Arthralgia of shoulder 02/19/2013 Social History Tobacco Use Types Packs/Day Years Used Date Smoking Tobacco: Former Comments Unknown Sex and Gender Information Value Date Recorded Sex Assigned at Not on file Legal Sex Female 4:41 AM REACH LIFT TRUCK DRIVER Gender Identity Not on file Sexual Orientation Not on file Last Filed Vital Signs Vital Sign Reading Time Taken Comments Blood Pressure - - Pulse - - Temperature - - Respiratory Rate - - Oxygen Saturation - - Inhaled Oxygen Concentration - - Weight 74.8 kg (165 lb) 12/20/2023 3:01 PM REACH LIFT TRUCK DRIVER Height 167.6 cm (5' 6 ) 12/20/2023 3:01 PM REACH LIFT TRUCK DRIVER Body Mass Index 26.63 12/20/2023 3:01 PM REACH LIFT TRUCK DRIVER Plan of Treatment Upcoming Encounters Date Type Department Care Team (Latest Contact Info) Description 04/09/2024 7:30 AM REACH LIFT TRUCK DRIVER Hospital Encounter [facility] [place] [address] [place] [phone] Juan Gaytan MD [address] [place] [address] DR HOLLOWAY [address] [place] [address] 04/09/2024 7:30 AM REACH LIFT TRUCK DRIVER - 04/09/2024 9:55 AM REACH LIFT TRUCK DRIVER Surgery [facility] [place] [address] [place] [phone] Juan Gaytan MD [address] [place] [address] DR HOLLOWAY [address] [place] [phone] RIGHT TOTAL KNEE ARTHROPLASTY Scheduled Procedures Name Priority Associated Diagnoses Date/Ti me ARTHROPLASTY TOTAL KNEE Primary osteoarthritis of right knee 04/09/2024 7:30 AM REACH LIFT TRUCK DRIVER Procedures Procedure Name Priority Date/Time Associated Diagnosis Comments TX ARTHROCENTESIS ASPIR&/INJ MAJOR JT/BURSA W/O US Routine 12/20/2023 3:00 PM REACH LIFT TRUCK DRIVER Pain in both knees, unspecified chronicity from Last 3 Months Results * TX ARTHROCENTESIS ASPIR&/INJ MAJOR JT/BURSA W/O US (12/20/2023 3:00 PM REACH LIFT TRUCK DRIVER) Narrative Juan Gaytan MD - 12/20/2023 3:00 PM REACH LIFT TRUCK DRIVER Juan Gaytan MD ? 12/21/2023 ??4:06 PM Large Joint (Hip, Knee, Shoulder) Injection: R knee Performed by: Juan Gaytan MD Authorized by: Juan Gaytan MD ?? Large Joint Injection/Aspiration: ??Consent Given by: ??Patient ??Site marked: the procedure site was marked ?Timeout: prior to procedure the correct patient, procedure, and site was verified ?Verbal consent obtained: Yes ?Written consent obtained: No ?? Supporting Documentation: ??Indications: ??Pain Procedure Details: ??Location: ??Knee ??Site: ??R knee ??Prep: patient was prepped using a clean technique ?Needle Size: ??22 G ??Ultrasound guided: No ?Fluroscopic guidance: No ?Medications: ??1 mL lidocaine 10 mg/mL (1 %); 40 mg triamcinolone 40 mg/mL ??Patient tolerance: ??Patient tolerated the procedure well with no immediate complications Juan Gaytan MD IN CLINIC/BEDSIDE [facility] JEREL Final Result from Last 3 Months Insurance Member Subscriber Plan / Payer ( fective 2023-Present) Name:Judmacey Gi C Relation to Subscriber:Self Name:Poncho Gi C Payer ID:[id number] (NAIC) Group ID:[id number] Type: [employer]jet Address: [place] [id number] [place] [address] [facility] FEDERAL Care Teams Prepress Manager Relationship Specialty Start Date End Date Chio Chandler MD [address] [place] [address] PCP - General Family Medicine 12/20/23
--- OUTSIDE RECORDS SUMMARY | 2024-03-13 12:30 | XMS_ITS | Clinical Summary ---
Author Organization [facility] Address [facility] [place] [address] Care Team Providers Care Casting House Worker Name Role Phone Chio Chandler MD Primary Care Provider [phone] Allergies Active Allergy Reactions Criticality Noted Date [...] right knee 12/22/2023 Arthralgia of shoulder 02/19/2013 Encounters Date Type Department Care Team Description 12/22/2023 Orders Only [facility] [address] [place] [address] [place] [phone] Juan Gaytan MD Primary osteoarthritis of right knee (Primary Dx) 12/20/2023 3:00 PM FILM RENTAL CLERK Office Visit [facility] [address] [place] [address] [place] [phone] Juan Gaytan MD Pain in both knees, unspecified chronicity (Primary Dx); Primary osteoarthritis of right knee from Last 3 Months Social History Tobacco Use Types Packs/Day Years Used Date Smoking Tobacco: Former Comments Unknown Sex and Gender Information Value Date Recorded Sex Assigned at Not on file Legal Sex Female 4:41 AM FILM RENTAL CLERK Gender Identity Not on file Sexual Orientation Not on file Obstetrics History Last Filed Vital Signs Vital Sign Reading Time Taken Comments Blood Pressure - - Pulse - - Temperature - - Respiratory Rate - - Oxygen Saturation - - Inhaled Oxygen Concentration - - Weight 74.8 kg (165 lb) 12/20/2023 3:01 PM FILM RENTAL CLERK Height 167.6 cm (5' 6 ) 12/20/2023 3:01 PM FILM RENTAL CLERK Body Mass Index 26.63 12/20/2023 3:01 PM FILM RENTAL CLERK Plan of Treatment Upcoming Encounters Date Type Department Care Team (Latest Contact Info) Description 04/09/2024 7:30 AM FILM RENTAL CLERK Hospital Encounter [facility] [place] [address] [place] [phone] Juan Gaytan MD [address] [place] [address] DR HOLLOWAY [address] [place] [phone] 04/09/2024 7:30 AM FILM RENTAL CLERK - 04/09/2024 9:55 AM FILM RENTAL CLERK Surgery [facility] [place] [address] [place] [phone] Juan Gaytan MD [address] [place] [address] DR HOLLOWAY [address] [place] [phone] RIGHT TOTAL KNEE ARTHROPLASTY Scheduled Procedures Name Priority Associated Diagnoses Date/Ti me ARTHROPLASTY TOTAL KNEE Primary osteoarthritis of right knee 04/09/2024 7:30 AM FILM RENTAL CLERK Health Maintenance Due Date Last Done Comments Cervical Cancer Screening 1961 Colon Cancer Screening-Colonoscopy 1961 Depression Screening 1961 Hepatitis C Screening 1961 DTaP/Tdap/Td Vaccine (1 - Tdap) 01/02/1972 Hepatitis B Screening 1979 Regular Well Visit/Exam 18-64 1979 Breast Cancer Screening-Mammogram 11/01/2022 11/01/2021 Covid-19 Vaccine ( - season) 2023 04/28/2020, 03/26/2020 Zoster Vaccine Completed 08/25/2022, 06/14/2022 Influenza Vaccine Completed 11/16/2023, , 12/20/2021, Additional history exists Pneumococcal vaccine <65 Aged Out No longer eligible based on patient's age to complete this topic Procedures Procedure Name Priority Date/Time Associated Diagnosis Comments ND ARTHROCENTESIS ASPIR&/INJ MAJOR JT/BURSA W/O US Routine 12/20/2023 3:00 PM FILM RENTAL CLERK Pain in both knees, unspecified chronicity from Last 3 Months Results * ND ARTHROCENTESIS ASPIR&/INJ MAJOR JT/BURSA W/O US (12/20/2023 3:00 PM FILM RENTAL CLERK) Narrative Juan Gaytan MD - 12/20/2023 3:00 PM FILM RENTAL CLERK Juan Gaytan MD ? 12/21/2023 ??4:06 PM [...] the procedure well with no immediate complications us Juan Gaytan MD IN CLINIC[facility]ED[facility]IDE [facility] Final Result from Last [address] [place] [address] [place] [address] FEDERAL Member Subscriber Plan / Payer (Ef fective 2023-Present) Name:Gi Isaac Relation to Subscriber:Self Name:Gi Isaac Payer ID:[id number] (NAIC) Group ID:[id number] Type: [employer] Address: [address] [place] [address] [facility] FEDERAL Care Teams Casting House Worker Relationship Specialty Start Date End Date Chio Chandler MD [address] [place] [address] PCP - General Family Medicine 12/20/23
--- OUTSIDE RECORDS SUMMARY | 2024-03-13 12:30 | XMS_ITS | Clinical Summary ---
Author Organization [facility] Address [facility] [place] [address] Care Team Providers Care Medical Office Technology Instructor Name Role Phone Unavailable Primary Care Provider Unavailabl e Social History Tobacco Use Types Packs/Day Years Used Date Smoking Tobacco: Never Assessed Comments Unknown Sex and Gender Information Value Date Recorded Sex Assigned at Not on file Legal Sex Female 7:43 PM CDT Gender Identity Not on file Sexual Orientation Not on file Plan of Treatment Health Maintenance Due Date Last Done Comments Cervical Cancer Screening Pa p Smear (Age 30 to 64) Every 3 Years 1961 Colorectal Cancer Screening Colonoscopy (10 Years) 1961 Annual Physical 01/02/1964 Hepatitis C 1979 DTaP, Tdap and Td Vaccines ( 1 - Tdap) 01/02/1980 Cervical Cancer Screening Pa p with HPV Testing (Age 30 to 64) Every 5 Years 1991 Cervical Cancer Screening with HPV 1991 Mammogram Screening 2001 Zoster Vaccines (1 of 2) 2011 COVID-19 Vaccine (2023-2 5 season) 2023 Influenza Adult (#1) 2023 RSV Immunization or 60+ Years (1 - 1-dose 75+ series) 01/02/2036 Meningococcal B Vaccine Aged Out No l onger eligible based on patient's age to complete this topic Meningococcal Vaccine Aged Out No sol jose eligible based on patient's age to complete this topic Pneumococcal Vaccine: Pediat rics (0 to 5 Years) and At-Risk Patients (6 to 64 Years) Aged Out No longer eligible b ased on patient's age to complete this topic RSV Immunizations Under 20 Months Aged Out No longer eligible based on patient's age to complete this topic
--- OUTSIDE RECORDS SUMMARY | 2024-03-13 12:30 | XMS_ITS | Referral Summary ---
Author Organization [facility] Address [address] [place] [address] Care Team Providers Care Plant Nursery Worker Name Role Phone Jeovanny Garcia MD Primary Care Provider Source Comments [facility],non-owned Affiliates and Associated Physician Practices is amultiple site organization consisting of ambulatory clinics and hospital sitesin [place], [place], [place] and [place]. This disclosure is being madepursuant to the Care Everywhere program and may not contain all information available regarding this patient. Last updated 17.[facility] [employer] Social History Tobacco Use Types Packs/Day Years Used Date Smoking Tobacco: Never Assessed Sex and Gender Information Value Date Recorded Sex Assigned at Not on file Gender Identity Not on file Sexual Orientation Not on file Plan of Treatment Not on file Care Teams Plant Nursery Worker Relationship Specialty Start Date End Date Jeovanny Garcia MD [address] [place] [phone] PCP - General 10/18/17
--- OUTSIDE RECORDS SUMMARY | 2024-03-13 12:30 | XMS_ITS | Data Portability ---
Author Organization [place] [facility], Main Office Address [address] [place] [address] Care Team Providers Care Care Management Specialist Name Role Phone NORMAN PIKE Primary Care Provider NORMAN PIKE Referring Provider Assessment No assessment recorded. Plan of Treatment Reminders Order Date Submit Date Provider Last Modified By Organization Details Last Modified Time Details Appointments None recorded. Lab vitamin D3, 25-hydroxy , serum 2022 023 [email or web address] [id number] Not available 4 08:07:01 lipid panel, serum 2022 023 [email or web address] Not available 4 08:07:01 BMP, serum or plasma 2022 023 [email or web address] Not available 4 08:07:02 TSH, serum or plasma 2022 023 [email or web address] Not available 4 08:07:01 Referral None recorded. Procedures None recorded. Surgeries None recorded. Imaging MAMMO, screening, digital, bilateral 2022 023 [email or web address] [facility], [address], [address] [address], [place], [address], 4 15:52:50 Medication Orders None recorded. Patient TargetsNo targets recorded. Patient InstructionsNo instructions recorded. Reason for Referral None Reported. Results Created Date Observation Date Name Description Value Unit Range Abnormal Flag Note LastModifiedBy Organization Detail LastModifiedTime 06/15/19 22 06/15/2021 TSH TSH 1.39 mIU/L 0.40-4 .50 normal Not Available [facility] [address], [place], [address], 06/15/2021 02:52:04 06/15/19 22 06/15/2021 T4, FREE T4, free 1.2 NG/dL 0.8-1. 8 normal Not Available [facility] [address], [place], [address], 06/15/2021 02:52:02 12/18/19 22 12/20/2021 QUEST ASSUR ED(TM ) 25 HYDRO XYVIT DIAZ D(D2, D3) vitamin D, 25-oh, total 38 NG/mL 30-100 (Note ) Vitam in D, 25-Hy droxy repor ts yeimi ntrat ions of two commo n forms , 25-OH D2 and 25-OH D3. 25-OH D3 indic ates both endog enous produ ction and suppl ement ation . 25-OH D2 is an indic ator of exoge nous sourc es such as diet or suppl ement ation . Thera py is based on measu remen t of Total 25-OH D, with level s <20 ng/mL indic ative of Vitam in D defic iency , while level s betwe en 20 ng/mL and 30 ng/mL sugge st insuf ficie ncy. Optim al level s are > or = 30 ng/mL . Vitam in D is fat-s olubl e and there fore inadv erten t or inten tyrell l inges tion of exces sivel y high amoun ts could be toxic . Studi es in child bennie and adult s sugge st blood level s would need to excee d 150 ng/mL befor e there is any yeimi rn. Elina nolan MF, Demi goldstein NC, Michael off-f errdani i RAHMAN, et al. Evalu ation , treat ment and preve ntion of vitam in D defic iency : an Endoc rine Socie ty clini lisa pract ice guide line. J Clin Endoc rinol Metab . 2011; 96(7) :1911 -30. For addit ional infor matcindi n, pleas e refer to http: //[facility] marlin borrego.Que stDia gnost ics.c om/fa q/FAQ 199 Not Available [address] [address] [place], [address], 12/20/2021 17:58:58 12/18/19 22 12/20/2021 QUEST ASSUR ED(TM ) 25 HYDRO XYVIT DIAZ D(D2, D3) vitamin D, 25-oh, D3 38 NG/mL Refer ence range : Not estab lishe d Not Available [facility] [address] [address] [place], [address], 12/20/2021 17:58:58 12/18/19 22 12/20/2021 QUEST ASSUR ED(TM ) 25 HYDRO XYVIT DIAZ D(D2, D3) vitamin D, 25-oh, D2 <4.0 NG/mL (Note ) Refer ence range : Not estab lishe d This test was devel oped and its joey tical perfo rmanc e kavin cteri stics have been deter mined by [employer]. It has not been clear ed or appro brian by the US Food and Drug Admin istra tion. This assay has been valid ated pursu ant to the CLIA regul ation and is used for Clini lisa purpo ses. MDF med fusio n [address] [facility] [address] [facility] [address] [phone] Jerome ramirez MD See Note 1 Note 1 For addit ional infor vishnu salgado refer to http: //popeye borrego.Kunal stDia gnost ics.c om/fa q/FAQ 199 (This link is being provi ded for infor amparo lopez/ educmona santillan l purpo ses only. ) Not Available [facility] [address] [address] [place], [address], 12/20/2021 17:58:58 12/18/19 22 12/20/2021 BASIC METAB OLIC PANEL glucose 96 mg/dL 65-99 normal Fasti ng refer ence inter janice Not Available [address] [address] [place], [address], 12/20/2021 17:58:57 12/18/19 22 12/20/2021 BASIC METAB OLIC PANEL urea nitrogen (BUN) 14 mg/dL 7-25 normal Not Available [address], [address], 12/20/2021 17:58:57 12/18/19 22 12/20/2021 BASIC METAB OLIC PANEL creatinine 0.68 mg/dL 0.50-1 .05 normal Not Available [facility] [address], [address], 12/20/2021 17:58:57 12/18/19 22 12/20/2021 BASIC METAB OLIC PANEL eGFR 100 mL/mi n/1.7 3m2 > or = 60 normal The eGFR is based on the CKD-E PI 2020 equat ion. To calcu late the new eGFR from a previ ous Creat inine or Cysta tin C resul t, go to https ://santos garibay.vitaly xiao/gibran gutiérrez s/ kdoqi /gfr% 5Fcal culat or Not Available [address] [address] [place], [address], 12/20/2021 17:58:57 12/18/19 22 12/20/2021 BASIC METAB OLIC PANEL BUN/creatini ne ratio not applic able (calc ) 6-22 Not Available [address] [address] [place], [address], 12/20/2021 17:58:57 12/18/19 22 12/20/2021 BASIC METAB OLIC PANEL sodium 143 mmol/ L 135-14 6 normal Not Available [address] [address] [place], [address], 12/20/2021 17:58:57 12/18/19 22 12/20/2021 BASIC METAB OLIC PANEL potassium 4.8 mmol/ L 3.5-5. 3 normal Not Available [address], [address], 12/20/2021 17:58:57 12/18/19 22 12/20/2021 BASIC METAB OLIC PANEL chloride 105 mmol/ L 98-110 normal Not Available [address], [address], 12/20/2021 17:58:57 12/18/19 22 12/20/2021 BASIC METAB OLIC PANEL carbon dioxide 31 mmol/ L 20-32 normal Not Available [address], [address], 12/20/2021 17:58:57 12/18/19 22 12/20/2021 BASIC METAB OLIC PANEL calcium 9.6 mg/dL 8.6-10 .4 normal Not Available [address], [address], 12/20/2021 17:58:57 12/18/19 22 12/20/2021 TSH+F REE T4 T4, free 1.1 NG/dL 0.8-1. 8 normal Not Available [address], [address], 12/20/2021 17:58:57 12/18/19 22 12/20/2021 TSH+F REE T4 TSH 2.46 mIU/L 0.40-4 .50 normal Not Available [address], [address], 12/20/2021 17:58:57 12/18/19 22 12/20/2021 LIPID PANEL , STAND RONNELL cholesterol, total 216 mg/dL <200 high Not Available [address], [address], 12/20/2021 17:58:56 12/18/19 22 12/20/2021 LIPID PANEL , STAND RONNELL HDL cholesterol 57 mg/dL > or = 50 normal Not Available [facility] [address] [place], [address], 12/20/2021 17:58:56 12/18/19 22 12/20/2021 LIPID PANEL , STAND RONNELL triglyceride s 104 mg/dL <150 normal Not Available [address] [address] [place], [address], 12/20/2021 17:58:56 12/18/19 22 12/20/2021 LIPID PANEL , STAND RONNELL LDL-choleste rol 138 mg/dL _(lisa c) high Refer ence range : <100 Angeli able range <100 mg/dL for prima ry preve ntion ; <70 mg/dL for patie nts with CHD or diabe tic patie nts with > or = 2 CHD risk facto rs. LDL-C is now calcu lated using the Louise borrego-Hop kins calcu joseline n, which is a valid ated novel metho d provi ding lacho r accur acy than the Fried justin equat ion in the estim ation of LDL-C . Louise borrego SS et al. ROSANGELA. 2013; 310(1 9): 2061- 2068 (http ://ed ucati on.Qu Hallie Precyse. com/f aq/FA Q164) Not Available [address] [address] [place], [address], 12/20/2021 17:58:56 12/18/19 22 12/20/2021 LIPID PANEL , STAND RONNELL chol/HDLC ratio 3.8 (calc ) <5.0 normal Not Available [facility] [address] [place] [address], [address], 12/20/2021 17:58:56 12/18/19 22 12/20/2021 LIPID PANEL , STAND RONNELL non HDL cholesterol 159 mg/dL _(lisa c) <130 high For patie nts with diabe hien plus 1 major ASCVD risk facto r, treat ing to a non-H DL-C goal of <100 mg/dL (LDL- C of <70 mg/dL ) is lizandro hare n. Not Available [address], [address], 12/20/2021 17:58:56 09/07/1909/07/2022 T4, FREE T4, free 1.0 NG/dL 0.8-1. 8 normal Not Available [address] [place], [address], 09/07/2022 03:38:25 09/07/1909/07/2022 TSH TSH 3.09 mIU/L 0.40-4 .50 normal Not Available [address] [place], [address], 09/07/2022 03:38:26 03/24/19 24 03/29/2023 LIPID PANEL , STAND RONNELL cholesterol, total 235 mg/dL <200 high Not Available [address], [address], 03/29/2023 14:43:28 03/24/19 24 03/29/2023 LIPID PANEL , STAND RONNELL HDL cholesterol 61 mg/dL > or = 50 normal Not Available [address], [address], 03/29/2023 14:43:28 03/24/19 24 03/29/2023 LIPID PANEL , STAND RONNELL triglyceride s 91 mg/dL <150 normal Not Available [address], [address], 03/29/2023 14:43:28 03/24/19 24 03/29/2023 LIPID PANEL , STAND RONNELL LDL-choleste rol 154 mg/dL _(lisa c) high Refer ence range : <100 Angeli able range <100 mg/dL for prima ry preve ntion ; <70 mg/dL for patie nts with CHD or diabe tic patie nts with > or = 2 CHD risk facto rs. LDL-C is now calcu lated using the Louise -[facility] kins marcela borrego, which is a valid ated novel adriano marcano accur acy than the Fried justin equat ion in the estim ation of LDL-C . Louise borrego SS et al. ROSANGELA. 2013; 310(1 9): 2061- 2068 (http ://ed ucati on.Qu estDi [employer]s. com/f aq/FA Q164) Not Available [facility] [address] [address] [place], [address], 03/29/2023 14:43:28 03/24/19 24 03/29/2023 LIPID PANEL , STAND RONNELL chol/HDLC ratio 3.9 (calc ) <5.0 normal Not Available [address] [address] [place], [address], 03/29/2023 14:43:28 03/24/19 24 03/29/2023 LIPID PANEL , STAND RONNELL non HDL cholesterol 174 mg/dL _(lisa c) <130 high For patie nts with diabe hien plus 1 major ASCVD risk facto r, treat ing to a non-H DL-C goal of <100 mg/dL (LDL- C of <70 mg/dL ) is consi ghanshyamd a michael wong optio n. Not Available [facility] [address] [address] [facility] [place], [address], 03/29/2023 14:43:28 03/24/19 24 03/29/2023 BASIC METAB OLIC PANEL glucose 98 mg/dL 65-99 normal Fasti ng refer ence inter janice Not Available [facility] [address] [address] [place], [address], 03/29/2023 14:43:29 03/24/19 24 03/29/2023 BASIC METAB OLIC PANEL urea nitrogen (BUN) 15 mg/dL 7-25 normal Not Available [address] [address] [place], [address], 03/29/2023 14:43:29 03/24/19 24 03/29/2023 BASIC METAB OLIC PANEL creatinine 0.74 mg/dL 0.50-1 .05 normal Not Available [address] [address] [place], [address], 03/29/2023 14:43:29 03/24/19 24 03/29/2023 BASIC METAB OLIC PANEL eGFR 91 mL/mi n/1.7 3m2 > or = 60 normal Not Available [address] [address] [place], [address], 03/29/2023 14:43:29 03/24/19 24 03/29/2023 BASIC METAB OLIC PANEL BUN/creatini ne ratio SEE NOTE: (calc ) 6-22 Not Repor sony: BUN and Creat inine are withi n refer ence range . Not Available [address] [address] [facility] [place], [address], 03/29/2023 14:43:29 03/24/19 24 03/29/2023 BASIC METAB OLIC PANEL sodium 141 mmol/ L 135-14 6 normal Not Available [address] [address] [place], [address], 03/29/2023 14:43:29 03/24/19 24 03/29/2023 BASIC METAB OLIC PANEL potassium 4.7 mmol/ L 3.5-5. 3 normal Not Available [address] [address] [place], [address], 03/29/2023 14:43:29 03/24/19 24 03/29/2023 BASIC METAB OLIC PANEL chloride 105 mmol/ L 98-110 normal Not Available [address] [address] [place], [address], 03/29/2023 14:43:29 03/24/19 24 03/29/2023 BASIC METAB OLIC PANEL carbon dioxide 30 mmol/ L 20-32 normal Not Available [facility] [address] [address] [place], [address], 03/29/2023 14:43:29 03/24/19 24 03/29/2023 BASIC METAB OLIC PANEL calcium 9.6 mg/dL 8.6-10 .4 normal Not Available [facility] [address] [place], [address], 03/29/2023 14:43:29 03/24/19 24 03/29/2023 TSH TSH 3.18 mIU/L 0.40-4 .50 normal Not Available [facility] [address] [address] [place], [address], 03/29/2023 14:43:30 03/24/19 24 03/29/2023 QUEST ASSUR ED(TM ) 25 HYDRO XYVIT DIAZ D(D2, D3) vitamin D, 25-oh, total 41 NG/mL 30-100 (Note ) Vitam in D, 25-Hy droxy repor ts yeimi ntrat ions of two commo n forms , 25-OH D2 and 25-OH D3. 25-OH D3 indic ates both endog enous produ ction and suppl ement ation . 25-OH D2 is an indic ator of exoge nous sourc es such as diet or suppl ement ation . Thera py is based on measu remen t of Total 25-OH D, with level s <20 ng/mL indic ative of Vitam in D defic iency , while level s betwe en 20 ng/mL and 30 ng/mL sugge st insuf ficie ncy. Optim al level s are > or = 30 ng/mL . For addit ional infor vishnu salgado e refer to http: //popeye borrego.Kunal stDia gnost ics.c om/fa q/FAQ 199 Not Available [facility] [address] [place], [address], 03/29/2023 14:43:31 03/24/19 24 03/29/2023 QUEST ASSUR ED(TM ) 25 HYDRO XYVIT DIAZ D(D2, D3) vitamin D, 25-oh, D3 41 NG/mL Refer ence range : Not estab lishe d Not Available [facility] [address] [address] , [place], [address], 03/29/2023 14:43:31 03/24/19 24 03/29/2023 QUEST ASSUR ED(TM ) 25 HYDRO XYVIT DIAZ D(D2, D3) vitamin D, 25-oh, D2 <4.0 NG/mL (Note ) Refer ence range : Not estab lishe d This test was devel oped and its joey tical perfo rmanc e kavin cteri stics have been deter mined by [employer] damien. It has not been clear ed or appro brian by the US Food and Drug Admin istra tion. This assay has been valid ated pursu ant to the CLIA regul ation and is used for Clini lisa purpo ses. MDF med fusio n [address] [facility] [address] [facility] [address] [phone] Evans stover MD See Note 1 Note 1 For addit ional infor vishnu salgado refer to http: //popeye Dowd stDia gnost ics.c om/fa q/FAQ 199 (This link is being provi ded for infor amparo lopez/ educmona santillan l purpo ses only. ) Not Available [facility] [place] [address], [place], [address], 03/29/2023 14:43:31 08/08/19 22 08/07/2021 XR, knee No observ ation record ed. [id number], [place], [address], 04/06/2022 00:53:54 10/02/19 22 10/01/2021 XR, knee No observ ation record ed. [id number] [facility] [address] [place], [address], 04/06/2022 00:53:54 11/02/19 22 11/01/2021 MAMMO ashley, bilat eral No observ ation record ed. [id number] [facility] [address], [place], [address], 04/06/2022 00:53:54 03/07/19 24 03/07/2023 MAMMO , mollye sean, digit al, bilat eral No observ ation record ed. [email or web address] [facility] [address], [place], [address], 06/18/2023 15:49:03 Result Notes None recorded. Problems Name Problem SNOMED Code Status Onset Date Resolution Date Notes Provider Name and Address Organization Details Recorded Time Rupture of rotator cuff of left shoulder 0012083578200 9102 Active 2019 Not Available [facility] 3 00:49:41 Shoulder joint pain 865674853 Active 2018 Not Available [facility] 3 00:49:41 Dizziness 334937250 Active 2020 Not Available [facility] 3 00:49:41 Hypothyroi dism 16597068 Active 2021 Not Available [facility] 3 00:49:41 Multiple joint pain 50957551 Active 2022 Norman Pike MD [address] [facility], [place], [address] , [employer] 3 08:46:54 Vitamin D deficiency 93574139 Active 2022 Norman Pike MD [address], [place], [address] , [employer] [place] [employer] [facility] 3 08:47:08 Problem Notes None recorded. Procedures Surgical History Date Name Laterality Status Provider Name and Address Organization Details Recorded Time 07/03/19 20 Rotator cuff surgery completed Not Available [facility] 04/06/2022 00:46:09 08/18/19 17 colonoscopy completed Not Available [facility] 04/07/19 23 00:46:09 04/16/19 14 Rotator cuff surgery completed Not Available [facility] 04/06/2022 00:46:09 Imaging Results Imaging Date Name Status LastModified by Organiz ation Details LastModified Time 11/01/2021 MAMMO, screening, bilateral completed [id number] [facility] [address], [place], [address], 04/06/2022 00:53:54 08/07/2021 XR, knee completed [id number] 30 026 [facility] [address] [facility] [address], [place], [address], 04/06/2022 00:53:54 10/01/2021 XR, knee completed [id number] 30 026 [facility] [address] , [place], [address], 04/06/2022 00:53:54 03/07/2023 MAMMO, screening, digital, bilateral completed [email or web address] [facility] [address], [place], [address], 06/18/2023 15:49:03 Procedure Notes None recorded. Medical Equipment None Reported. Allergies Allergen ID Allergen Name Allergen Category Reaction Reaction Severity Criticality Documentation Date Start Date Code Code System Note Provider Name and Address Organization Details Recorded Time 528 Product containin g penicilli n and antibioti c (product) medicatio n hives Not available Not available 04/06/2022 48842 05 SNOMED Not Available [facility] 3 00:53:24 529 ergocalci ferol medicatio n rash Not available Not available 04/06/2022 4018 RxNorm Not Available [facility] 3 00:53:25 530 clindamyc in Not available Not available Not available Not available 04/06/2022 2582 RxNorm intes tinal pain Not Available [facility] 3 00:53:25 Medications Name Sig Start Date Stop Date Status Note LastModified by Organization Details LastModified Time azithromyci n 250 mg tablet TAKE 2 TABLETS (500 MG) BY ORAL ROUTE ONCE DAILY FOR 1 DAY THEN 1 TABLET (250 MG) BY ORAL ROUTE ONCE DAILY FOR 4 DAYS 12/20 completed Not Available Not Available Not Available benzonatate 200 mg capsule 12/20 completed Not Available Not Available Not Available cephalexin 250 mg capsule 03/25 completed Not Available Not Available Not Available meloxicam 15 mg tablet Take 1 tablet(s) every day by oral route. 10/22 completed Not Available Not Available Not Available acetaminoph en 300 mg-codeine 30 mg tablet TAKE ONE TABLET BY MOUTH EVERY 6 HOURS NEEDED FOR PAIN active Not Available Not Available No t Available amoxicillin 875 mg tablet 03/25 completed Not Available Not Available Not Available meclizine 25 mg tablet TK 1 T PO TID PRF DIZZINESS active Not Available Not Available No t Available levothyroxi ne 50 mcg tablet Take 1 tablet every day by oral route. active Not Available Not Available No t Available cephalexin 500 mg capsule TK ONE C PO Q 6 H TAT active Not Available Not Available No t Available mupirocin 2 % topical ointment LAURENT IEN BID FOR 5 DAYS UTD active Not Available Not Available No t Available ergocalcife rol (vitamin D2) 1,250 mcg (50,000 unit) capsule TK 1 C PO WEEKLY active Not Available Not Available No t Available diazepam 10 mg tablet TK 1 T PO 30 MINS PRIOR TO APPOINTME NT FOR ANXIETY active Not Available Not Available No t Available scopolamine 1 mg over 3 days transdermal patch LAURENT 1 PA EXT TO THE SKIN Q 72 H PRN active Not Available Not Available No t Available methylpredn isolone 4 mg tablets in a dose pack FOLLOW PACKAGE DIRECTION S 12/07 completed Not Available Not Available Not Available Percocet 5 mg-325 mg tablet Take 1 tablet every 4 hours by oral route. active Not Available Not Available No t Available [place] 5 mg-325 mg tablet Take 1 tablet every 4 hours by oral route. active Not Available Not Available No t Available fluticasone propionate 50 mcg/actuati on nasal spray,suspe nsion 12/20 completed Not Available Not Available Not Available oxycodone 5 mg tablet TK 1 OR 2 TS PO Q 4 H PRN active Not Available Not Available No t Available escitalopra m 10 mg tablet Take 1 tablet every day by oral route. 2020 active Not Available Not Available Not Avai lable escitalopra m 5 mg tablet Take 1 tablet every day by oral route. 12/07 completed Not Available Not Available Not Available Aleve 2-4 every other day 01/05 completed Not Available Not Available Not Available metronidazo le 1 % topical gel with pump 03/25 completed Not Available Not Available Not Available Fluzone Quad (PF) 60 mcg (15 mcg x 4)/0.5 mL IM syringe ADM 0.5ML IM UTD active Not Available Not Available No t Available Vitals Date Recorded Body mass index (BMI) Body mass index (BMI) Body mass index (BMI) Body mass index (BMI) Body height Body height Body height Body height Oxygen saturation Oxygen saturation in Arterial blood by Pulse oximetry Oxygen saturation Oxygen saturation in Arterial blood by Pulse oximetry Oxygen saturation Oxygen saturation in Arterial blood by Pulse oximetry Oxygen saturation Oxygen saturation in Arterial blood by Pulse oximetry Heart rate Heart rate Heart rate Heart rate Body temperature Body temperature Body temperature Body temperature Body weight Body weight Body weight Body weight Systolic blood pressure Diastolic blood pressure Systolic blood pressure Diastolic blood pressure Systolic blood pressure Diastolic blood pressure Systolic blood pressure Diastolic blood pressure Provider Name and Address Organization Details Last Updated DateTime 3 27.5 kg/m2 27.5 kg/m2 27.8 kg/m2 28.2 kg/m2 162.56 cm 162.56 cm 162.56 cm 162.56 cm 98 % 98 % 96 % 96 % 97 % 97 % 99 % 99 % 74 /min 63 /min 61 /min 94 /min 97.4 [degF] 97.8 [degF] 97.2 [degF] 97.6 [degF] 03239.7 8 g 44340.7 8 g 19518.9 6 g 30056.1 5 g 112 mm[Hg] 64 mm[Hg] 120 mm[Hg] 80 mm[Hg] 122 mm[Hg] 80 mm[Hg] 120 mm[Hg] 70 mm[Hg] Not Available [facility] 3 00:48:21 Date Recorded Body height Body mass index (BMI) Body weight Heart rate Oxygen saturation Oxygen saturation in Arterial blood by Pulse oximetry Systolic blood pressure Diastolic blood pressure Provider Name and Address Organization Details Last Updated DateTime 3 162.56 cm 28.7 kg/m2 80123.9 3 g 77 /min 97 % 97 % 126 mm[Hg] 82 mm[Hg] Snehal Luther RN [facility] 08:33:15 Date Recorded Body temperature Provider Name a nd Address Organization Details Last Updated DateTime 01/26/2023 97.8 [degF] Norman Pike MD [address] [facility], [facility] [address], [place], [address], [place] [employer] [facility] 01/26/2023 08:35:30 Social History Question Answer Notes LastModified by Organizat ion Details LastModified Time Tobacco Smoking Status Former Smoker quit 15 years then smoked again few years then quit again a few years ago 2020 Germaine Pedro fragoso, [place] [employer] [facility] 01/26/2023 08:30:16 Do You Have An Advance Directive? No [id number] Information not available 04/06/2022 What Is Your Level Of Alcohol Consumption? None [id number] Information not available 04/06/2022 What Is Your Level Of Caffeine Consumption? Occasional [id number] Information not available 04/06/2022 In The 14 Days Before Symptom Onset, Have You Had Close Contact With A Laboratory-confir med COVID-19 While That Case Was Ill? No [email or web address] Information not available 01/26/2023 In The 14 Days Before Symptom Onset, Have You Had Close Contact With A Person Who Is Under Investigation For COVID-19 While That Person Was Ill? No [email or web address] Information not available 01/26/2023 What Type Of Diet Are You Following? REGULAR [id number] Information not available 04/06/2022 Which Illicit Or Recreational Drugs Have You Used? 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 No [email or web address] Information not available 01/26/2023 What Was The Date Of Your Most Recent Tobacco Screening? 01/26/2023 [email or web address] Information not available 01/26/2023 Are You Passively Exposed To Smoke? No [email or web address] Information no t available 01/26/2023 Do You Use Any Illicit Or Recreational Drugs? No [email or web address] Information not available 01/26/2023 Do You Use Sunscreen Routinely? Yes [email or web address] Information not available 01/26/2023 Has Tobacco Cessation Counseling Been Provided? No Information not available 01/26/2023 Do You Have Any Dietary Restrictions? No [email or web address] Information not available 01/26/2023 Do You Or Have You Ever Used Any Other Forms Of Tobacco Or Nicotine? No [email or web address] Information not available 01/26/2023 Sex: Female Functional Status Question Answer Note LastModified by Organizat ion Details LastModified Time What is your exercise level? Moderate [id number] Information not available 04/06/2022 Mental Status None recorded. Family History Relationship Description Onset Age of this Age Resolved Age Notes LastModified by Organization Details LastModified Time Father Malignant melanoma [email or web address] Not available 2022 08:30:16 Father Diabetes mellitus [email or web address] [id number] Not available 04/06/2022 00:46:13 Brother Disease of liver Hep C [email or web address] Not available 2022 08:30:16 Brother Diabetes mellitus [email or web address] [id number] Not available 04/06/2022 00:46:13 Medical History Condition Response BLINDNESS N RHEUMATIC FEVER N KIDNEY STONES N BLADDER PROBLEMS N OTHER # 1 N POLIO N LUNG DISEASE/DISORDER N RADIATION / CHEMOTHERAPY N COPD N Other # 2 N BLOOD DISEASES N SURGERY N EAR OR HEARING PROBLEMS N MUMPS N FEMALE PROBLEMS / INFECTIONS N DEPRESSION (INCLUDING POST ) N BOWEL PROBLEMS N STROKE/TIA N THYROID DISEASE N ULCERS N BENIGN PROSTATIC HYPERPLASIA N MEASLES N CERVICALGIA N TB SKIN TEST N MYOCARDIAL INFARCTION N PARAPELGIA N OBESITY N GERD/NAUSEA N ANEURYSM N URINARY/BLADDER/KIDNEY PROBLEMS N INPATIENT PSYCH CARE N CORONARY ARTERY DISEASE (CAD) N MENIERE'S DISEASE N ADDICTION CONCERNS N ENDOMETRIOSIS N USE OF BLOOD THINNERS N SKIN PROBLEMS N EMPHYSEMA N GASTROINTESTINAL DISORDER N MUSCLE,JOINT OR BONE PROBLEMS N GASTROINTESTINAL BLEEDING N BLOOD CLOTS N ASTHMA N CATARACTS N ERECTILE DYSFUNCTION N GI PROBLEMS N CHF N Low Testosterone N NEUROPATHY N INFERTILITY N AIDS/HIV N FRACTURES N VISION/EYE PROBLEMS N LIVER DISEASE N MALE HYPOGONADISM N HYPERTENSION N ANXIETY DISORDER N BLOOD TRANSFUSION N ANEMIA/BLOOD DISORDER N CHRONIC EAR INFECTIONS N BRONCHITIS N TUBERCULOSIS N GLAUCOMA N FOOT PROBLEM N DIVERTICULITIS N SLEEP APNEA N CHICKENPOX N ALLERGIES/HAYFEVER N INFECTIOUS DISEASE N PROSTATE N HEART ARRHYTHMIA N INSOMNIA N HIGH CHOLESTEROL / HYPERLIPIDEMIA N EYE PROBLEMS N HYPERTHYROIDISM N EATING DISORDER N NEUROLOGICAL PROBLEMS N EDEMA N CHRONIC PAIN SYNDROME N HYPOTHYROIDISM N CAROTID BLOCKAGE N CONSTIPATION N BACK / NECK PROBLEMS N HAVE YOU BEEN HOSPITALIZED OR SEEN IN [facility] IN THE PAST YEAR ? N ATHEROSCLEROSIS N BREAST PROBLEMS N DIALYSIS N ECZEMA N FIBROMYALGIA N OSTEOPOROSIS N ARTHRITIS N NO SIGNIFICANT PAST MEDICAL HISTORY N APPENDICITIS N DIABETES, TYPE N BAD TEETH N HEARTBURN / REFLUX N ADD/ADHD N AUTISM SPECTRUM DISORDER (ASD) N HEPATITIS / LIVER DISEASE N PULMONARY DISEASE N GOUT N SLEEP DISORDER N ALZHEIMER'S DISEASE N PAIN N DEMENTIA N HERPES N SEIZURES/EPILEPSY N HEADACHES/MIGRAINES N VASCULAR DISEASE N PACEMAKER N DIZZINESS N HEART DISEASE/HEART PROBLEMS N KIDNEY DISEASE N SCARLET FEVER N MULTIPLE SCLEROSIS N DEVELOPMENTAL OR BEHAVIORAL DISORDERS N MENTAL DISORDER/ILLNESS N CANCER: SPECIFY N CARDIAC ARRHYTHMIA N PNEUMONIA N ANESTHESIA COMPLICATIONS N ATRIAL FIBRILLATION N PULMONARY EMBOLISM N AUTOIMMUNE DISEASE N Gynecological History Statement/Question Response Abnormal Pap N Date of Last Mammogram 03/07/2023 Weight gain N Dislike of Light during Menstrual Headac he N Menses Monthly N STIs/STDs N Current Control Method Menopause Breast Problems none Discharge none Obstetrics History GPAL:G 0 P 0 0 0 0 Immunizations Vaccine Type Date Status Note Provider Nam e and Address Organization Details Recorded Time SARS-COV-2 (COVID-19) vaccine, UNSPECIFIED 1 completed Not Available [facility] 04/06/2022 00:53:18 Influenza, split virus, quadrivalent, PF 2 completed Not Available [facility] 04/06/2022 00:53:18 Influenza, split virus, quadrivalent, PF 1 completed Not Available [facility] 04/06/2022 00:53:18 Past Encounters Encounter ID Performer Location Encounter Start Date Encounter Closed Date Diagnosis/Indication Diagnosis SNOMED-CT Code Diagnosis ICD10 Code Diagnosis Note [id number] [facility] [address] [place] [address] 04/15/2020 00:00:00 04/26/2020 21:36:06 [id number] [facility] [address] [place] [address] 07/08/2020 00:00:00 07/08/2020 15:23:23 [id number] [facility] [place] [address] [place] [id number] 12/07/2020 00:00:00 12/07/2020 10:01:08 [id number] [facility] [place] [address] [place] [id number] 03/25/2021 00:00:00 04/05/2021 08:13:25 [id number] [facility] Theresa randolph [address] [place] [id number] 06/17/2021 00:00:00 06/17/2021 09:25:37 [id number] [facility] Theresa randolph [address] [place] [address] 12/20/2021 00:00:00 12/20/2021 08:58:50 [id number] [facility] [place] [address] [place] [id number] 03/25/2022 00:00:00 03/25/2022 12:41:27 [id number] Norman Pike MD [facility] Theresa corteze [address] [place] [id number] 01/26/2023 08:28:58 01/26/2023 08:54:56 Adult health examination [id number] Z00.00 Z13.1 Z13.220 Pap/hpv normal 12/07/20 check fasting labs in 1 year Colonoscop y normal 08/17/2016 Mammogram order given plan DEXA age 66 hep c screen negative 01/26 remain a nonsmoker Plan pneumovax 23 age 66 received flu vaccine 11/28 recommend covid booster Has completed shingrix vaccine series Screening mammography 24 656389 Z12.31 Hypothyroidism 49768169 E03.9 stable Multiple joint pain 3567 8005 M25.50 continue to stay activecont inue glucosamin e/chondroi rancho write letter in support of using accumulate d sick leave or FMLA paperwork for reduced hours if needed in future Vitamin D deficiency 347 36497 E55.9 Health Concerns Section Related Observation LastModified by Organization Detai ls LastModified Time None Recorded Concern Status LastModified by Organization Details LastModified Time None Recorded Advance Directives Directive N: Payers Encounter Date Sequence Insurance Name Policy Number Policy [place] Covered Member ID [place] Member ID Guarantor Name 01/26/2023 1 [employer]: [employer] (PPO) [address] [id number] Gi Cuenca Poncho Notes Date Note Type Note Provider Name and Address Organization Details Recorded Time 01/26/2023 text/html Here for wellness exam. She has h/o b/l rotator cuff issues in shoulders. She has torn meniscus in her knee, has pain in her ankles. 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 Norman Pike MD [address] [place] [address], [place] [address], [place], [address], [facility] 01/26/2023 08:55:24 OBGyn Episode No OBEpisode recorded.
--- OUTSIDE RECORDS SUMMARY | 2024-03-13 12:30 | XMS_ITS | Clinical Summary ---
Author Organization [facility] Address [address] [address] Care Team Providers Care Process Specialist Name Role Phone Jeovanny Garcia MD Primary Care Provider Source Comments [facility],non-owned Affiliates and Associated Physician Practices is amultiple site organization consisting of ambulatory clinics and hospital sitesin [place], [place], [place] and [place]. This disclosure is being madepursuant to the Care Everywhere program and may not contain all information available regarding this patient. Last updated 17.[facility] Social History Tobacco Use Types Packs/Day Years Used Date Smoking Tobacco: Never Assessed Sex and Gender Information Value Date Recorded Sex Assigned at Not on file Gender Identity Not on file Sexual Orientation Not on file Plan of Treatment Health Maintenance Due Date Last Done Comments COLOGUARD (AGES 45-75) - COL ON CA SCREENING 1961 COLON MONITORING 1961 COLONOSCOPY - COLON CA SCREENING 1961 CT COLONOGRAPHY - COLON CA SCREENING 1961 Colorectal Cancer Screening 1961 FIT - COLON CA SCREENING 1961 FLEX SIG - COLON CA SCREENING 1961 LIPID TESTING 1961 MAMMOGRAM 1961 PAP SMEAR 1961 HIV SCREENING 01/02/1976 HEPATITIS C SCREENING 12/28/1978 DTAP/TDAP/TD VACCINES (1 - Tdap) 01/02/1980 PNEUMOCOCCAL VACCINE 50+ (1 of 1 - PCV) 2011 ZOSTER VACCINE (1 of 2) 2011 COVID-19 VACCINE ( - 2023-2 5 season) 2023 INFLUENZA VACCINE (#1) 2023 DEPRESSION SCREENING 02/07/2024 Respiratory Syncytial Virus (RSV) Vaccine Pt: or over 60 yrs (1 - 1-dose 75+ series) 01/02/2036 HEPATITIS B VACCINE Aged Out No longe r eligible based on patient's age to complete this topic HIB VACCINE Aged Out No longer eligi ble based on patient's age to complete this topic HPV VACCINE Aged Out No longer eligi ble based on patient's age to complete this topic MENINGOCOCCAL (Group B) VACCINE Aged Out No longer eligible based on patient's age to complete this topic MENINGOCOCCAL VACCINE Aged Out No sol jose eligible based on patient's age to complete this topic PNEUMOCOCCAL VACCINE Aged Out No long er eligible based on patient's age to complete this topic Care Teams Process Specialist Relationship Specialty Start Date End Date Jeovanny Garcia MD [address] [place] [address] PCP - General 10/18/17
== END 2024-03-13 10:51 | disposition home or self-care (01) ==
LOC: ANHCARD 10:51
PROVIDERS: PCP Family Medicine; Visit Provider Family Medicine
DX: Z01.818 Encounter for other preprocedural examination (principal); I45.10 Unspecified right bundle-branch block
CPT/HCPCS: 93005

== ENCOUNTER 2024-05-15 11:26 | Outpatient (CLI) | payer BC, SELFPAY ==
--- NOTE | ~2024-05-15 | MM_ITS ---
EXAMINATION: MM screening [facility] BI w amada HISTORY: Screening TECHNIQUE: Craniocaudal and mediolateral oblique 3-D tomosynthesis images were obtained and synthetic 2-D images were generated. CAD analysis was submitted and interpreted. COMPARISON: Comparison to multiple prior studies sequentially, with oldest reviewed study dated 06/23. BREAST PARENCHYMAL COMPOSITION: Not dense: There are scattered areas of fibroglandular density. FINDINGS: There is no evidence of suspicious mass, calcification, or architectural distortion to sugg est malignancy in either breast. There has been no suspicious interval change. IMPRESSION: 1. No mammographic evidence of malignancy. 2. Recommend routine screening mammography in one year. BI-RADS Category 1: Negative Reviewed, dictated and finalized at location A.
== END 2024-05-15 11:27 | disposition home or self-care (01) ==
LOC: MICIMG 11:26
PROVIDERS: PCP Family Medicine; Visit Provider Family Medicine
DX: Z12.31 Encounter for screening mammogram for malignant neoplasm of breast (principal)
CPT/HCPCS: 77063; 77067